=== PATIENT | male | born 1955 | race Caucasian/White ===

== ENCOUNTER 2016-06-28 15:52 | Inpatient (IN) | payer OTHER ==
[2016-06-28] MEDS ORDERED: MENTHOL/PHENOL 1 EACH UD MM PRN (16:23)
[2016-06-28] MEDS ORDERED: guaiFENesin/D-METHORPHAN HB 10 ML UNIT-DOSE CUPS PO PRN (16:23)
[2016-06-28] MEDS ORDERED: METHADONE HCL 10 MG TABLET (FOR DETOX USE ONLY) PO ONE ×2 (16:23→23:00)
[2016-06-28] MEDS ORDERED: MAGNESIUM CITRATE 300 ML BOTTLE PO PRN (16:23)
[2016-06-28] MEDS ORDERED: MAG HYDROX/AL HYDROX/SIMETH 30 ML UNIT-DOSE CUP PO PRN (16:23)
[2016-06-28] MEDS ORDERED: LOPERAMIDE HCL 2 MG CAPSULE PO PRN (16:23)
[2016-06-28] MEDS ORDERED: P-EPHED 60MG/TRIPROLIDI 2.5MG TABLET PO PRN (16:23)
[2016-06-28] MEDS ORDERED: MAGNESIUM HYDROX 2400MG/30ML ORAL SUSPENSION 30 ML CUP PO PRN (16:23)
[2016-06-28 16:24] VITALS: BMI 21.1
--- NOTE | 2016-06-28 16:32 | HP ---
COWS - Scale Resting Pulse: 0= [place] 80 or Below Sweatin=Flushed/Facial Moisture Restless Observation: 1= Difficult to Sit Still Pupil Size: 2= Moderately Dilated Bone or Joint Aches: 2= Severe Diffuse Aches Runny Nose/ Eye Tearin= Runny Nose/Eyes GI Upset > 30mins: 2= Nausea/Diarrhea Tremor Observation: 2= Slight Tremor Visible Yawning Observation: 1= 1-2x During Session Anxiety or Irritability: 2=Irritable/Anxious Goose Flesh Skin: 0=Smooth Skin COWS Score: 16 Admission ROS S - [facility] Chief Complaint: WITHDRAWAL SX. Allergies/Adverse Reactions: Allergies Allergy/AdvReac Type Severity Reaction Status Date / Time No Known Allergies Allergy Verified 06/28/16 16:22 History of Present Illness: 61 Y/O MAN WITH A LONG HX. OF HEROIN DEPENDENCE IS ADMITTED FOR DETOX.PT. HAS BEEN IN PREVIOUS REPORT SIGNIFICANT PERIOD DRUG FREE,ABOUT 5YRS. Exam Limitations: No Limitations - Ebola screening Have you traveled outside of the country in the last 21 days: No Have you had contact with anyone from an Ebola affected area: No Have you been sick,other than usual withdrawal symptoms: No Do you have a fever: No - Review of Systems Constitutional: Diaphoresis EENT: reports: Nose Congestion Respiratory: reports: No Symptoms reported Cardiac: reports: No Symptoms Reported GI: reports: Abdominal cramping : reports: No Symptoms Reported Musculoskeletal: reports: Back Pain (OFF & ON) Integumentary: reports: Sweating Neuro: reports: Headache, Tremors Endocrine: reports: No Symptoms Reported Hematology: reports: No Symptoms Reported Psychiatric: reports: No Sypmtoms Reported Other Systems: Reviewed and Negative Patient History - Patient Medical History Hx Anemia: No Hx Asthma: No Hx Chronic Obstructive Pulmonary Disease (COPD): No Hx Cancer: No Hx Cardiac Disorders: Yes (MILD IA IN CAUSED BY DRUG OD IN 2006) Hx Congestive Heart Failure: No Hx Hypertension: No Hx Hypercholesterolemia: No Hx Pacemaker: No HX Cerebrovascular Accident: No Hx Seizures: No Hx Dementia: No Hx Diabetes: No Hx Gastrointestinal Disorders: No Hx Liver Disease: Yes Hx Genitourinary Disorders: No Hx Sexually Transmitted Disorders: No Hx Renal Disease (ESRD): No Hx Thyroid Disease: No Hx Human Immunodeficiency Virus (HIV): No Hx Hepatitis C: Yes (TREATED IN 2011) Hx Depression: Yes (NO MED NOW) Hx Suicide Attempt: Yes (DRUG OD IN 2006) Hx Bipolar Disorder: No Hx Schizophrenia: No - Patient Surgical History Past Surgical History: Yes Hx Cholecystectomy: Yes - PPD History Previous Implant?: Yes Documented Results: Negative w/o proof PPD to be Administered?: Yes - Smoking Cessation Smoking history: Never smoked - Substance & Tx. History Hx Alcohol Use: No Hx Substance Use: Yes Substance Use Type: Heroin Hx Substance Use Treatment: Yes (DETOX) - Substances Abused Heroin Route: Inhalation Frequency: Daily Amount used: 18-20 BAGS Age of first use: 12 Date of Last Use: 06/27/16 Family Disease History - Family Disease History Family Disease History: Heart Disease: Mother (HTN,COPD), Respiratory: Mother, Other: Father (CVA) Admission Physical Exam [facility] - Vital Signs Vital Signs: Vital Signs - 24 hr 06/28/16 16:22 Temperature 97.4 F L Pulse Rate 72 Respiratory 18 Rate Blood Pressure 152/107 - Physical General Appearance: Yes: Tremorous, Sweating, Anxious HEENTM: Yes: Nasal Congestion, Rhinorrhea Respiratory: Yes: Chest Non-Tender, Lungs Clear, Normal Breath Sounds Neck: Yes: Supple Breast: Yes: Breast Exam Deferred Cardiology: Yes: Regular Rhythm, Regular Rate, S1, S2 Abdominal: Yes: Normal Bowel Sounds, Non Tender, Soft Genitourinary: Yes: Within Normal Limits Back: Yes: Within Normal Limits Musculoskeletal: Yes: Within Normal Limits Extremities: Yes: Within Normal Limits Neurological: Yes: Fully Oriented, Alert Integumentary: Yes: Diaphoresis Lymphatic: Yes: Within Normal Limits - Diagnostic (1) Opioid dependence with withdrawal Current Visit: Yes Status: Acute Cleared for Admission [facility] - Detox or Rehab [facility] Level of Care: Medically Managed Detox Regimen/Protocol: Methadone [facility] Breath Alcohol Content Breath Alcohol Content: 0 Urine Drug Screen - Results Drug Screen Negative: No Urine Drug Screen Results: OPI-Opiates, MTD-Methadone, TCA-Tricyclic Antidepress
[2016-06-28] MEDS: diazePAM 5 MG TABLET PO PRN (17:07)
[2016-06-28] MEDS: THIAMINE HCL 100 MG TABLET (FP) PO SCH (22:11)
[2016-06-28] MEDS: diphenhydrAMINE HCL 50 MG CAPSULE PO PRN (22:11)
[2016-06-29] MEDS: diazePAM 5 MG TABLET PO PRN ×3 (05:35→22:25)
[2016-06-29 09:47] LABS: MCH 29.1 pg (25.7-33.7); MCHC 33.5 g/dl (32.0-35.9); MEAN CELL VOLUME 87.1 fl (80-96); MEAN PLT VOLUME 7.9 fl (7.5-11.1); PLATELET COUNT 213 K/MM3 (134-434); RDW 15.2 % (11.9-15.9); WHITE BLOOD COUNT 6.8 K/mm3 (4.0-10.0)
[2016-06-29] MEDS ORDERED: METHADONE HCL 10 MG TABLET (FOR DETOX USE ONLY) PO ONE (10:00)
[2016-06-29 10:11] LABS: ALBUMIN 3.4 g/dl (3.4-5.0); ALK PHOS 113 U/L (45-117); ANION GAP 9 (8-16); BILIRUBIN,TOTAL 0.1 mg/dL (0.2-1.0); CALCIUM 8.5 mg/dL (8.5-10.1); CO2 26 mmol/L (21-32); CREATININE 0.7 mg/dL (0.7-1.3); GLUCOSE,RANDOM 96 mg/dL (74-106); SGOT/AST 20 U/L (15-37); SGPT/ALT 18 U/L (12-78); TOT PROT 7.5 g/dl (6.4-8.2)
--- NOTE | 2016-06-29 10:28 | EKG ---
Test Reason : Blood Pressure : / mmHG Vent. Rate : 072 BPM Atrial Rate : 072 BPM P-R Int : 138 ms QRS Dur : 072 ms QT Int : 398 ms P-R-T Axes : 067 058 033 degrees QTc Int : 435 ms NORMAL SINUS RHYTHM MINIMAL VOLTAGE CRITERIA FOR LVH, MAY BE NORMAL VARIANT BORDERLINE ECG NO PREVIOUS ECGS AVAILABLE Confirmed by MARIA LUISA ZHONG MD ([id number]) on 06/29/2016 10:27:37 AM Referred By: Confirmed By:MARIA LUISA ZHONG MD
[2016-06-29] MEDS: PRENATAL VITAMINS W/ FOLIC ACID TABLET (FP) PO SCH (10:45)
--- NOTE | 2016-06-29 11:45 | PN ---
[facility] COWS - Scale Resting Pulse: 0= [place] 80 or Below Sweatin=Flushed/Facial Moisture Restless Observation: 1= Difficult to Sit Still Pupil Size: 0= Normal to Room Light Bone or Joint Aches: 2= Severe Diffuse Aches Runny Nose/ Eye Tearin= Runny Nose/Eyes GI Upset > 30mins: 2= Nausea/Diarrhea Tremor Observation of Outstretched Hands: 2= Slight Tremor Visible Yawning Observation: 1= 1-2x During Session Anxiety or Irritability: 2=Irritable/Anxious Goose Flesh Skin: 0=Smooth Skin COWS Score: 14 BHS Progress Note (SOAP) Subjective: SWEATING,ANXIETY,INTERRUPTED SLEEP,RESTLESS,MUSCLE ACHES/SPASM Objective: 06/29/16 11:43 Vital Signs - 8 hr 06/29/16 06/29/16 06:13 09:42 Temperature 96.1 F L 97.3 F L Pulse Rate 62 74 Respiratory 18 18 Rate Blood Pressure 152/79 106/65 Laboratory Tests 06/29/16 06/29/16 06:30 06:30 WBC 6.8 RBC 4.01 Hgb 11.7 Hct 34.9 L MCV 87.1 MCHC 33.5 RDW 15.2 Plt Count 213 MPV 7.9 Sodium 139 Potassium 4.0 Chloride 104 Carbon Dioxide 26 Anion Gap 9 BUN 16 Creatinine 0.7 Creat Clearance w eGFR > 60 Random Glucose 96 Calcium 8.5 Total Bilirubin 0.1 L AST 20 ALT 18 Alkaline Phosphatase 113 Total Protein 7.5 Albumin 3.4 LABS NOTED Assessment: 06/29/16 11:44 WITHDRAWAL SX. Plan: CONTINUE DETOX
[2016-06-29] MEDS ORDERED: INFLUENZA VACCINE 45 MCG/0.5 ML (MDV 16-17) IM ONE (12:00)
[2016-06-29 12:14] LABS: HIV 1 & 2 AB NEGATIVE; HIV 1 AGp24 NEGATIVE
[2016-06-29 13:21] LABS: SICKLE CELL SCREEN NEGATIVE (NEGATIVE)
--- NOTE | 2016-06-29 13:51 | CONSULT ---
[facility] Psychiatric Consult - Data Date of interview: 06/29/16 Admission source: [facility] Identifying data: Readmission to [facility] for this 61 y/o male seeking detox treatment on for heroin dependence.Patient is , domiciled,unemployed and supported on Social Security benefits. Substance Abuse History: - Smoking Cessation. Smoking history: Never smoked. - Substance & Tx. History. Hx Alcohol Use: No. Hx Substance Use: Yes. Substance Use Type: Heroin. Hx Substance Use Treatment: Yes (DETOX). - Substances Abused. Heroin. Route: Inhalation. Frequency: Daily. Amount used: 18-20 BAGS. Age of first use: 12. Date of Last Use: 06/27/16. Discussed with patient in this interview.He confirmed this pattern of substance use. Medical History: Remarkable for a history of liver disease,hepatitis C and myocardial infarction in 2006 (deliberate drug overdose). Psychiatric History: No reported history of psychiatric hospitalizations.Patient states that he used to be prescribed ambien and zyprexa (last taken in 2006).Mr Payan mentions MDD and Anxiety Disorder.No OPD care for years.Chronic insomnia is reported and the patient requests zolpidem at bedtime.Mr Payan has also expressed the wish to restart olanzapine (he reports past history of beneficial response to that drug in terms of mood stabilization). Physical/Sexual Abuse/Trauma History: Patient denies history of sexual abuse.Mr Payan reports the loss of two wives (2006 + 2009).Traumatized by these tragic events. Additional Comment: Urine Drug Screen Results: OPI-Opiates, MTD-Methadone, TCA- Tricyclic Antidepressant.Noted. Mental Status Exam - Mental Status Exam Alert and Oriented to: Time, Place, Person Cognitive Function: Good Patient Appearance: Disheveled Mood: Nervous, Withdrawn Affect: Mood Congruent Patient Behavior: Fatigued, Appropriate, Cooperative Speech Pattern: Clear, Appropriate Voice Loudness: Normal (bilingual) Thought Process: Intact, Goal Oriented Thought Disorder: Not Present Hallucinations: Denies Suicidal Ideation: Denies Homicidal Ideation: Denies Insight/Judgement: Poor Sleep: Poorly, Difficulty falling asleep Appetite: Good Muscle strength/Tone: Normal Gait/Station: Normal Psychiatric Findings - Problem List ([place] 1, 2,3) (1) Opioid dependence with withdrawal Current Visit: Yes Status: Acute (2) Insomnia Current Visit: Yes Status: Acute - Initial Treatment Plan Initial Treatment Plan: Psychoeducation.Detoxification in progress.Zyprexa 2.5 mg po hs + zolpidem 5 mg po hs prn.Patient made aware of risk of metbolic syndrome (olanzapine) and parasomnias (ambien).He agrees with this plan.Observation.
[2016-06-29] MEDS: IBUPROFEN 400 MG TABLET (FP) PO PRN (19:21)
[2016-06-29] MEDS: ZOLPIDEM TARTRATE 5 MG TABLET PO PRN (22:25)
[2016-06-29] MEDS: THIAMINE HCL 100 MG TABLET (FP) PO SCH (22:26)
[2016-06-29] MEDS: BENZOCAINE 20 % GEL 9 GM TUBE MM PRN (22:58)
[2016-06-30] MEDS: diazePAM 5 MG TABLET PO PRN ×2 (02:35→22:29)
[2016-06-30] MEDS: IBUPROFEN 400 MG TABLET (FP) PO PRN ×3 (02:36→20:52)
[2016-06-30] MEDS: BENZOCAINE 20 % GEL 9 GM TUBE MM PRN ×4 (02:37→22:28)
[2016-06-30] MEDS: ACETAMINOPHEN 325 MG TABLET (FP) PO PRN ×2 (05:33→22:28)
[2016-06-30] MEDS ORDERED: METHADONE HCL 5 MG TABLET (FOR DETOX USE ONLY) PO ONE (10:00)
[2016-06-30] MEDS: PRENATAL VITAMINS W/ FOLIC ACID TABLET (FP) PO SCH (10:24)
--- NOTE | 2016-06-30 11:42 | PN ---
[facility] CIWA - CIWA Score Nausea/Vomitin-No Nausea/No Vomiting Muscle Tremors: 4-Moderate,w/Arms Extend Anxiety: 4-Mod. Anxious/Guarded Agitation: 4-Moderately Restless Paroxysmal Sweats: 1-Minimal Palms Moist Orientation: 0-Oriented Tacttile Disturbances: 3-Moderate Itch/Numb/Burn Auditory Disturbances: 0-None Visual Disturbances: 0-None Headache: 0-None Present CIWA-Ar Total Score: 16 BHS Progress Note (SOAP) Subjective: ANXIETY,SLIGHT TREMORS, SWEATS. C/O TOOTHACHE LEFT UPPER/LOWER JAW. Objective: 06/30/16 11:41 Vital Signs Temperature 96.4 F L 06/30/16 06:24 Pulse Rate 66 06/30/16 06:24 Respiratory Rate 18 06/30/16 06:24 Blood Pressure 134/80 06/30/16 06:24 O2 Sat by Pulse Oximetry (%) Laboratory Last Values WBC 6.8 K/mm3 (4.0-10.0) 06/29/16 06:30 RBC 4.01 M/mm3 (4.00-5.60) 06/29/16 06:30 Hgb 11.7 GM/dL (11.7-16.9) 06/29/16 06:30 Hct 34.9 % (35.4-49) L 06/29/16 06:30 MCV 87.1 fl (80-96) 06/29/16 06:30 MCHC 33.5 g/dl (32.0-35.9) 06/29/16 06:30 RDW 15.2 % (11.9-15.9) 06/29/16 06:30 Plt Count 213 K/MM3 (134-434) 06/29/16 06:30 MPV 7.9 fl (7.5-11.1) 06/29/16 06:30 Sickle Cell Screen Negative (NEGATIVE) 06/29/16 06:30 Sodium 139 mmol/L (136-145) 06/29/16 06:30 Potassium 4.0 mmol/L (3.5-5.1) 06/29/16 06:30 Chloride 104 mmol/L (98-107) 06/29/16 06:30 Carbon Dioxide 26 mmol/L (21-32) 06/29/16 06:30 Anion Gap 9 (8-16) 06/29/16 06:30 BUN 16 mg/dL (7-18) 06/29/16 06:30 Creatinine 0.7 mg/dL (0.7-1.3) 06/29/16 06:30 Creat Clearance w eGFR > 60 (>60) 06/29/16 06:30 Random Glucose 96 mg/dL (74-106) 06/29/16 06:30 Calcium 8.5 mg/dL (8.5-10.1) 06/29/16 06:30 Total Bilirubin 0.1 mg/dL (0.2-1.0) L 06/29/16 06:30 AST 20 U/L (15-37) 06/29/16 06:30 ALT 18 U/L (12-78) 06/29/16 06:30 Alkaline Phosphatase 113 U/L (45-117) 06/29/16 06:30 Total Protein 7.5 g/dl (6.4-8.2) 06/29/16 06:30 Albumin 3.4 g/dl (3.4-5.0) 06/29/16 06:30 RPR Titer Nonreactive (NONREACTIVE) 06/29/16 06:30 HIV 1&2 Antibody Screen Negative 06/29/16 06:30 HIV P24 Antigen Negative 06/29/16 06:30 Assessment: 06/30/16 11:41 WITHDRAWAL SX Plan: CONTINUE DETOX
[2016-06-30] MEDS: LIDOCAINE VISCOUS 2% ORAL/TOP 20 ML UNIT-DOSE CUP MM PRN (12:53)
[2016-06-30 17:29] LABS: URINE APPEARANCE CLEAR; URINE BILIRUBIN NEGATIVE (NEGATIVE); URINE BLOOD NEGATIVE (NEGATIVE); URINE COLOR LTYELLOW; URINE GLUCOSE (UA) NEGATIVE (NEGATIVE); URINE KETONE NEGATIVE (NEGATIVE); URINE LEUK ESTERASE NEGATIVE (NEGATIVE); URINE NITRITE NEGATIVE (NEGATIVE); URINE PROTEIN NEGATIVE (NEGATIVE); URINE UROBILINOGEN NEGATIVE E.U./dl (0.2-1.0)
[2016-06-30] MEDS: ZOLPIDEM TARTRATE 5 MG TABLET PO PRN (22:29)
[2016-06-30] MEDS: THIAMINE HCL 100 MG TABLET (FP) PO SCH (22:29)
[2016-07-01] MEDS: diazePAM 5 MG TABLET PO PRN ×2 (05:37→10:05)
[2016-07-01] MEDS: IBUPROFEN 400 MG TABLET (FP) PO PRN (05:38)
[2016-07-01] MEDS: LIDOCAINE VISCOUS 2% ORAL/TOP 20 ML UNIT-DOSE CUP MM PRN (05:39)
[2016-07-01] MEDS ORDERED: AMOX TR/POT CLAV 875MG/125MG TABLETS (FP) PO ONE (08:45)
[2016-07-01] MEDS ORDERED: METHADONE HCL 5 MG TABLET (FOR DETOX USE ONLY) PO ONE (10:00)
[2016-07-01] MEDS: PRENATAL VITAMINS W/ FOLIC ACID TABLET (FP) PO SCH (10:04)
--- NOTE | 2016-07-01 10:07 | PN ---
S Progress Note (SOAP) Subjective: ANXIETY,IRRITABILITY,EXCRUCIATING TOOTHACHE,INTERMITTENT SLEEP Objective: 07/01/16 10:03 Vital Signs Temperature 96.9 F L 07/01/16 09:33 Pulse Rate 71 07/01/16 09:33 Respiratory Rate 18 07/01/16 09:33 Blood Pressure 108/82 07/01/16 09:33 O2 Sat by Pulse Oximetry (%) LEFT UPPER/LOWER MOLARS AND LOWER INCISSORS WITH TOOTH DECAY/ABCESS AND REDNESS. Assessment: 07/01/16 10:04 WITHDRAWAL SX TOOTH DECAY TOOTH ABCESS GINGIVITIS Plan: CONTINUE DETOX [facility] DIRECTED FOLLOW UP WITH DENTAL APPOINTMENT AFTER DETOX DISCHARGE.
[2016-07-01] MEDS: BENZOCAINE 20 % GEL 9 GM TUBE MM PRN ×4 (12:57→23:22)
[2016-07-01] MEDS: AMOX TR/POT CLAV 875MG/125MG TABLETS (FP) PO SCH (16:48)
[2016-07-01] MEDS: hydrOXYzine PAMOATE 50 MG CAPSULE (FP) PO PRN (17:04)
[2016-07-01] MEDS: THIAMINE HCL 100 MG TABLET (FP) PO SCH (22:18)
[2016-07-01] MEDS: OLANZapine 2.5 MG TABLET PO SCH (22:18)
[2016-07-01] MEDS: ZOLPIDEM TARTRATE 5 MG TABLET PO PRN (22:18)
[2016-07-02] MEDS: hydrOXYzine PAMOATE 50 MG CAPSULE (FP) PO PRN (05:42)
[2016-07-02] MEDS: ACETAMINOPHEN 325 MG TABLET (FP) PO PRN (05:43)
[2016-07-02] MEDS: AMOX TR/POT CLAV 875MG/125MG TABLETS (FP) PO SCH ×2 (07:20→17:39)
[2016-07-02] MEDS ORDERED: ONDANSETRON *ODT* 4 MG TABLET SL PRN (09:27)
--- NOTE | 2016-07-02 09:50 | PN ---
BHS Progress Note (SOAP) Subjective: ANXIETY,SWEATS,CHILLS,NAUSEA. Objective: 07/02/16 09:49 Vital Signs Temperature 97.0 F L 07/02/16 09:22 Pulse Rate 76 07/02/16 09:22 Respiratory Rate 18 07/02/16 09:22 Blood Pressure 133/76 07/02/16 09:22 O2 Sat by Pulse Oximetry (%) Assessment: 07/02/16 09:50 WITHDRAWAL SX Plan: CONTINUE DETOX ZOFRAN PRN
[2016-07-02] MEDS ORDERED: METHADONE HCL 10 MG TABLET (FOR DETOX USE ONLY) PO ONE (10:00)
[2016-07-02] MEDS: PRENATAL VITAMINS W/ FOLIC ACID TABLET (FP) PO SCH (10:05)
[2016-07-02] MEDS: IBUPROFEN 400 MG TABLET (FP) PO PRN ×2 (10:05→22:17)
[2016-07-02] MEDS: BENZOCAINE 20 % GEL 9 GM TUBE MM PRN (20:30)
[2016-07-02] MEDS: LIDOCAINE VISCOUS 2% ORAL/TOP 20 ML UNIT-DOSE CUP MM PRN (20:32)
[2016-07-02] MEDS: OLANZapine 2.5 MG TABLET PO SCH (22:16)
[2016-07-02] MEDS: diphenhydrAMINE HCL 50 MG CAPSULE PO PRN (22:16)
[2016-07-02] MEDS: THIAMINE HCL 100 MG TABLET (FP) PO SCH (22:16)
[2016-07-03] MEDS: diphenhydrAMINE HCL 50 MG CAPSULE PO PRN (01:18)
[2016-07-03] MEDS ORDERED: METHADONE HCL 5 MG TABLET (FOR DETOX USE ONLY) PO ONE (06:00)
[2016-07-03 06:22] VITALS: BP 145/76; PULSE 68; TEMP 96.6
[2016-07-03] MEDS: AMOX TR/POT CLAV 875MG/125MG TABLETS (FP) PO SCH (07:18)
--- NOTE | 2016-07-25 11:10 | DS ---
[facility] Detox Discharge Summary Admission Date: 06/28/16 Discharge Date: 07/03/16 - History Present History: Opioid Dependence Pertinent Past History: Hep C - Physical Exam Results Vital Signs: Vital Signs Temperature 96.6 F L 07/03/16 06:21 Pulse Rate 68 07/03/16 06:21 Respiratory Rate 18 07/03/16 06:21 Blood Pressure 145/76 07/03/16 06:21 O2 Sat by Pulse Oximetry (%) Pertinent Admission Physical Exam Findings: withdrawal sx. Laboratory Last Values WBC 6.8 K/mm3 (4.0-10.0) 06/29/16 06:30 RBC 4.01 M/mm3 (4.00-5.60) 06/29/16 06:30 Hgb 11.7 GM/dL (11.7-16.9) 06/29/16 06:30 Hct 34.9 % (35.4-49) L 06/29/16 06:30 MCV 87.1 fl (80-96) 06/29/16 06:30 MCHC 33.5 g/dl (32.0-35.9) 06/29/16 06:30 RDW 15.2 % (11.9-15.9) 06/29/16 06:30 Plt Count 213 K/MM3 (134-434) 06/29/16 06:30 MPV 7.9 fl (7.5-11.1) 06/29/16 06:30 Sickle Cell Screen Negative (NEGATIVE) 06/29/16 06:30 Sodium 139 mmol/L (136-145) 06/29/16 06:30 Potassium 4.0 mmol/L (3.5-5.1) 06/29/16 06:30 Chloride 104 mmol/L (98-107) 06/29/16 06:30 Carbon Dioxide 26 mmol/L (21-32) 06/29/16 06:30 Anion Gap 9 (8-16) 06/29/16 06:30 BUN 16 mg/dL (7-18) 06/29/16 06:30 Creatinine 0.7 mg/dL (0.7-1.3) 06/29/16 06:30 Creat Clearance w eGFR > 60 (>60) 06/29/16 06:30 Random Glucose 96 mg/dL (74-106) 06/29/16 06:30 Calcium 8.5 mg/dL (8.5-10.1) 06/29/16 06:30 Total Bilirubin 0.1 mg/dL (0.2-1.0) L 06/29/16 06:30 AST 20 U/L (15-37) 06/29/16 06:30 ALT 18 U/L (12-78) 06/29/16 06:30 Alkaline Phosphatase 113 U/L (45-117) 06/29/16 06:30 Total Protein 7.5 g/dl (6.4-8.2) 06/29/16 06:30 Albumin 3.4 g/dl (3.4-5.0) 06/29/16 06:30 Urine Color Ltyellow 06/30/16 10:45 Urine Appearance Clear 06/30/16 10:45 Urine pH 5.0 (5.0-8.0) 06/30/16 10:45 Ur Specific [place] 1.018 (1.001-1.035) 06/30/16 10:45 Urine Protein Negative (NEGATIVE) 06/30/16 10:45 Urine Glucose (UA) Negative (NEGATIVE) 06/30/16 10:45 Urine Ketones Negative (NEGATIVE) 06/30/16 10:45 Urine Blood Negative (NEGATIVE) 06/30/16 10:45 Urine Nitrite Negative (NEGATIVE) 06/30/16 10:45 Urine Bilirubin Negative (NEGATIVE) 06/30/16 10:45 Urine Urobilinogen Negative E.U./dl (0.2-1.0) 06/30/16 10:45 Ur Leukocyte Esterase Negative (NEGATIVE) 06/30/16 10:45 RPR Titer Nonreactive (NONREACTIVE) 06/29/16 06:30 HIV 1&2 Antibody Screen Negative 06/29/16 06:30 HIV P24 Antigen Negative 06/29/16 06:30 labs noted - Treatment Hospital Course: Detox Protocol Followed, Detoxed Safely, Responded well, Discharged Condition Good, Rehab Referral Accepted - Medication Discharge Medications: Ambulatory Orders Amox-Tr/K Cl [Augmentin 875-125mg Tablet -] 1 tab PO BID@0800,1730 #14 tablet - Diagnosis (1) Opioid dependence with withdrawal Status: Acute (2) Insomnia Status: Acute (3) Hep C w/o coma, chronic Status: Acute - AMA Did Patient Leave Against Medical Advice: No
== END 2016-07-03 07:00 | disposition home or self-care (01) | DRG 773 ==
LOC: YASAS 15:52 → Y3N 16:41
PROVIDERS: ADMIT Internal Medicine; ATTEND Internal Medicine
PROC: HZ2ZZZZ Detoxification Services for Substance Abuse Treatment (ICD-10-PCS; principal; 2016-07-03)
DX: F11.23 Opioid dependence with withdrawal (principal); G47.00 Insomnia, unspecified
CPT/HCPCS: 36415; 80053; 81003; 85027; 85660; 86593; 87389; 93005; 93010

== ENCOUNTER 2016-10-29 11:47 | Inpatient (IN) | payer OTHER ==
[2016-10-29 14:56] VITALS: BMI 20.4
--- NOTE | 2016-10-29 16:39 | HP ---
COWS - Scale Resting Pulse: 0= [place] 80 or Below Sweatin= Chills/Flushing Restless Observation: 3= Extraneous Movement Pupil Size: 0= Normal to Room Light Bone or Joint Aches: 2= Severe Diffuse Aches Runny Nose/ Eye Tearin= Runny Nose/Eyes GI Upset > 30mins: 1= Stomach Cramp Tremor Observation: 2= Slight Tremor Visible Yawning Observation: 1= 1-2x During Session Anxiety or Irritability: 2=Irritable/Anxious Goose Flesh Skin: 0=Smooth Skin COWS Score: 14 Admission ROS S - [facility] Chief Complaint: withdrawal sx Allergies/Adverse Reactions: Allergies Allergy/AdvReac Type Severity Reaction Status Date / Time No Known Allergies Allergy Verified 10/29/16 15:25 History of Present Illness: 61 years old male with long history of opioid dependence has depression denies medical issue is admitted to detox Exam Limitations: No Limitations - Ebola screening Have you traveled outside of the country in the last 21 days: No Have you had contact with anyone from an Ebola affected area: No Have you been sick,other than usual withdrawal symptoms: No Do you have a fever: No - Review of Systems Constitutional: Chills, Changes in sleep, Weight Stable EENT: reports: Dental Problems (chronic gum infection), Other (eye glasses) Respiratory: reports: No Symptoms reported Cardiac: reports: No Symptoms Reported GI: reports: Constipated, Nausea, Poor Fluid Intake, Abdominal cramping : reports: No Symptoms Reported Musculoskeletal: reports: Back Pain, Joint Pain, Muscle Pain, Neck Pain Integumentary: reports: No Symptoms Reported Neuro: reports: Tremors Endocrine: reports: No Symptoms Reported Hematology: reports: No Symptoms Reported Psychiatric: reports: Judgement Intact, Orientated x3, Anxious, Depressed Other Systems: Reviewed and Negative Patient History - Patient Medical History Hx Anemia: No Hx Asthma: No Hx Chronic Obstructive Pulmonary Disease (COPD): No Hx Cancer: No Hx Cardiac Disorders: No Hx Congestive Heart Failure: No Hx Hypertension: No Hx Hypercholesterolemia: No Hx Pacemaker: No HX Cerebrovascular Accident: No Hx Seizures: No Hx Dementia: No Hx Diabetes: No Hx Gastrointestinal Disorders: Yes (acid reflux) Hx Liver Disease: Yes Hx Genitourinary Disorders: No Hx Sexually Transmitted Disorders: No Hx Renal Disease (ESRD): No Hx Thyroid Disease: No Hx Human Immunodeficiency Virus (HIV): No Hx Hepatitis C: Yes (TREATED IN 2011) Hx Depression: Yes Hx Suicide Attempt: Yes (pill overdose in 1996) Hx Bipolar Disorder: No Hx Schizophrenia: No - Patient Surgical History Past Surgical History: Yes Hx Neurologic Surgery: No Hx Cataract Extraction: No Hx Cardiac Surgery: No Hx Lung Surgery: No Hx Breast Surgery: No Hx Breast Biopsy: No Hx Abdominal Surgery: No Hx Appendectomy: No Hx Cholecystectomy: Yes (in 2013) Hx Genitourinary Surgery: No Hx Orthopedic Surgery: No Anesthesia Reaction: No - PPD History Previous Implant?: Yes Documented Results: Negative w/proof Implanted On Prior R Admission?: Yes Date: 06/30/16 Results: 0 mm PPD to be Administered?: No - Smoking Cessation Smoking history: Never smoked Have you smoked in the past 12 months: No Hx Chewing Tobacco Use: No Initiated information on smoking cessation: No - Substance & Tx. History Hx Alcohol Use: No Hx Substance Use: Yes Substance Use Type: Opiates Hx Substance Use Treatment: Yes - Substances Abused Heroin Route: Inhalation Frequency: Daily Amount used: 22 bags Age of first use: 12 Date of Last Use: 10/28/16 Street methadone Route: Oral Frequency: 1-3 times last 30 days Amount used: 60 mg. Age of first use: 33 Date of Last Use: 10/28/16 Family Disease History - Family Disease History Family Disease History: Heart Disease: Mother (HTN,COPD ), Respiratory: Mother, Other: Father (CVA ) Admission Physical Exam [facility] - Vital Signs Vital Signs: Vital Signs - 24 hr 10/29/16 14:52 Temperature 96 F L Pulse Rate 73 Respiratory 20 Rate Blood Pressure 104/67 - Physical General Appearance: Yes: Appropriately Dressed, Mild Distress, Thin, Tremorous, Irritable, Sweating, Anxious HEENTM: Yes: Hearing grossly Normal, Normal ENT Inspection, Normocephalic, Normal Voice Respiratory: Yes: Chest Non-Tender, Lungs Clear, Normal Breath Sounds, No Respiratory Distress, No Accessory Muscle Use Neck: Yes: Supple, Trachea in good position Breast: Yes: Breasts Symetrical Cardiology: Yes: Regular Rhythm, Regular Rate, S1, S2 Abdominal: Yes: Non Tender, Soft, Decreased BS Genitourinary: Yes: Within Normal Limits Back: Yes: Normal Inspection Musculoskeletal: Yes: full range of Motion, Gait Steady, Back pain, Muscle Pain Extremities: Yes: Normal Range of Motion, Non-Tender, Tremors Neurological: Yes: Fully Oriented, Alert, Motor Strength 5/5, Normal Response, Depressed Affect Integumentary: Yes: Warm Lymphatic: Yes: Within Normal Limits - Diagnostic (1) Opioid dependence with withdrawal Current Visit: Yes Status: Acute (2) GERD (gastroesophageal reflux disease) Current Visit: Yes Status: Chronic Qualifiers: Esophagitis presence: without esophagitis Qualified Code(s): K21.9 - Gastro-esophageal reflux disease without esophagitis (3) Hepatitis C antibody test positive Current Visit: Yes Status: Resolved (4) Depression (emotion) Current Visit: Yes Status: Suspected Qualifiers: Depression Type: dysthymia Qualified Code(s): F34.1 - Dysthymic disorder Cleared for Admission [facility] - Detox or Rehab [facility] Level of Care: Medically Managed Detox Regimen/Protocol: Methadone [facility] Breath Alcohol Content Breath Alcohol Content: 0 Urine Drug Screen - Results Drug Screen Negative: No Urine Drug Screen Results: OPI-Opiates, MTD-Methadone, TCA-Tricyclic Antidepress
[2016-10-29] MEDS ORDERED: MAGNESIUM CITRATE 300 ML BOTTLE PO PRN (16:43)
[2016-10-29] MEDS ORDERED: LOPERAMIDE HCL 2 MG CAPSULE PO PRN (16:43)
[2016-10-29] MEDS ORDERED: P-EPHED 60MG/TRIPROLIDI 2.5MG TABLET PO PRN (16:43)
[2016-10-29] MEDS ORDERED: diphenhydrAMINE HCL 50 MG CAPSULE PO PRN (16:43)
[2016-10-29] MEDS ORDERED: MENTHOL/PHENOL 1 EACH UD MM PRN (16:43)
[2016-10-29] MEDS ORDERED: guaiFENesin/D-METHORPHAN HB 10 ML UNIT-DOSE CUPS PO PRN (16:43)
[2016-10-29] MEDS ORDERED: MAGNESIUM HYDROX 2400MG/30ML ORAL SUSPENSION 30 ML CUP PO PRN (16:43)
[2016-10-29] MEDS ORDERED: MAG HYDROX/AL HYDROX/SIMETH 30 ML UNIT-DOSE CUP PO PRN (16:43)
[2016-10-29] MEDS ORDERED: ACETAMINOPHEN 325 MG TABLET (FP) PO PRN (16:43)
[2016-10-29] MEDS ORDERED: METHADONE HCL 10 MG TABLET (FOR DETOX USE ONLY) PO ONE ×2 (18:00→23:00)
[2016-10-29] MEDS: diazePAM 5 MG TABLET PO PRN (18:38)
[2016-10-29] MEDS: RANITIDINE HCL 150 MG TABLET (FP) PO SCH (22:10)
[2016-10-29] MEDS: THIAMINE HCL 100 MG TABLET (FP) PO SCH (22:10)
[2016-10-30] MEDS: diazePAM 5 MG TABLET PO PRN ×2 (05:18→10:17)
--- NOTE | 2016-10-30 09:54 | EKG ---
Test Reason : Blood Pressure : / mmHG Vent. Rate : 081 BPM Atrial Rate : 081 BPM P-R Int : 132 ms QRS Dur : 084 ms QT Int : 374 ms P-R-T Axes : 060 061 031 degrees QTc Int : 434 ms NORMAL SINUS RHYTHM MINIMAL VOLTAGE CRITERIA FOR LVH, MAY BE NORMAL VARIANT WHEN COMPARED WITH ECG OF 28-JUN-2016 17:12, NO SIGNIFICANT CHANGE WAS FOUND Confirmed by JOEY CLAROS MD ([id number]) on 10/30/2016 9:54:10 AM Referred By: Confirmed By:JOEY CLAROS MD
[2016-10-30] MEDS ORDERED: METHADONE HCL 10 MG TABLET (FOR DETOX USE ONLY) PO ONE (10:00)
[2016-10-30] MEDS: RANITIDINE HCL 150 MG TABLET (FP) PO SCH ×2 (10:17→23:10)
[2016-10-30] MEDS: PRENATAL VITAMINS W/ FOLIC ACID TABLET (FP) PO SCH (10:17)
[2016-10-30 10:24] LABS: MCH 28.8 pg (25.7-33.7); MCHC 33.5 g/dl (32.0-35.9); MEAN CELL VOLUME 86.2 fl (80-96); MEAN PLT VOLUME 8.7 fl (7.5-11.1); PLATELET COUNT 228 K/MM3 (134-434); RDW 14.2 % (11.9-15.9)
[2016-10-30] MEDS ORDERED: ONDANSETRON *ODT* 4 MG TABLET SL PRN (10:25)
[2016-10-30 10:57] LABS: ALBUMIN 4.2 g/dl (3.4-5.0); ALK PHOS 98 U/L (45-117); ANION GAP 8 (8-16); BILIRUBIN,TOTAL 0.6 mg/dL (0.2-1.0); CALCIUM 9.5 mg/dL (8.5-10.1); CO2 28 mmol/L (21-32); COCKROFT - GAULT 65.48; CREATININE 0.8 mg/dL (0.7-1.3); GLUCOSE,RANDOM 88 mg/dL (74-106); SGOT/AST 26 U/L (15-37); SGPT/ALT 20 U/L (12-78); TOT PROT 8.7 g/dl (6.4-8.2)
--- NOTE | 2016-10-30 11:03 | CONSULT ---
[facility] Psychiatric Consult - Data Date of interview: 10/30/16 Admission source: [facility] Identifying data: Another admission to [facility] for this 61 y/o male seeking detox treatment on for heroin dependence.Patient is , domiciled,unemployed and supported on Social Security benefits. Substance Abuse History: - Smoking Cessation. Smoking history: Never smoked. Have you smoked in the past 12 months: No. Hx Chewing Tobacco Use: No. Initiated information on smoking cessation: No. - Substance & Tx. History. Hx Alcohol Use: No. Hx Substance Use: Yes. Substance Use Type: Opiates. Hx Substance Use Treatment: Yes. - Substances Abused. Heroin. Route: Inhalation. Frequency: Daily. Amount used: 22 bags. Age of first use: 12. Date of Last Use: 10/28/16. Street methadone. Route: Oral. Frequency: 1-3 times last 30 days. Amount used: 60 mg. Age of first use: 33. Date of Last Use: 10/28/16. Confirmed by patient. Medical History: Liver disease,hepatitis C and myocardial infarction in 2006 ( deliberate drug overdose). Psychiatric History: No reported history of psychiatric hospitalizations in spite of a background of two suicide attempts (overdose with drugs).Patient states that he used to be prescribed effexor,ambien and zyprexa at the time of his affiliation with [facility] program (stopped OPD treatment in 2006).Diagnosed with MDD and Anxiety Disorder.Patient is known to [facility]. Physical/Sexual Abuse/Trauma History: Patient denies history of sexual abuse.Mr Payan reports the loss of two wives (2006 + 2009) to medical illnesses.Traumatized by these losses (occasional fashbacks,nightmares and mood dysregulation). Additional Comment: Urine Drug Screen Results: OPI-Opiates, MTD-Methadone, TCA- Tricyclic Antidepressant.Noted. Mental Status Exam - Mental Status Exam Alert and Oriented to: Time, Place, Person Cognitive Function: Good Patient Appearance: Well Groomed Mood: Sad, Nervous, Withdrawn, Anxious Affect: Constricted Patient Behavior: Crying (emotionally incontinent), Cooperative Speech Pattern: Clear (salvadorean speaking) Voice Loudness: Normal Thought Process: Goal Oriented Thought Disorder: Not Present Hallucinations: Auditory (hears voices whispering commands to kill people), Visual (sees spiders,snakes and demons in his room) Homicidal Ideation: Current, Plan (to stab or shoot people in the streets) Insight/Judgement: Poor, Impaired Sleep: Poorly, Difficulty falling asleep Appetite: Poor, Weight loss Muscle strength/Tone: Normal Gait/Station: Normal Psychiatric Findings - Problem List ([place] 1, 2,3) (1) Major depress, sev w/ psych Current Visit: Yes Status: Acute (2) Opioid dependence with withdrawal Current Visit: Yes Status: Acute (3) GERD (gastroesophageal reflux disease) Current Visit: Yes Status: Chronic Qualifiers: Esophagitis presence: without esophagitis Qualified Code(s): K21.9 - Gastro-esophageal reflux disease without esophagitis (4) Hepatitis C antibody test positive Current Visit: Yes Status: Resolved (5) Insomnia Current Visit: No Status: Acute - Initial Treatment Plan Initial Treatment Plan: Detoxification treatment is initiated.Will start seroquel 100 mg po bid.Side effects/benefits discussed with the patient.Mr Payan is placed on 1:1 Constant Observation for safety.Converted to 2 PC status while awaiting transfer to a psychiatric facility for inpatient care.Case discussed with the Multidisciplinary team.Disposition is discussed with patient (given notice of rights).
[2016-10-30] MEDS: QUEtiapine FUMARATE 50 MG TABLET PO SCH ×2 (11:31→23:10)
--- NOTE | 2016-10-30 12:13 | PN ---
BHS COWS - Scale Resting Pulse: 1= [place] 81-100 Sweatin= Chills/Flushing Restless Observation: 1= Difficult to Sit Still Pupil Size: 0= Normal to Room Light Bone or Joint Aches: 2= Severe Diffuse Aches Runny Nose/ Eye Tearin= Nasal Congestion GI Upset > 30mins: 2= Nausea/Diarrhea Tremor Observation of Outstretched Hands: 2= Slight Tremor Visible Yawning Observation: 1= 1-2x During Session Anxiety or Irritability: 2=Irritable/Anxious Goose Flesh Skin: 3=Piloerection COWS Score: 16 BHS Progress Note (SOAP) Subjective: Nausea, H/A, Interrupted Sleep, Tremors, Sweating, Body Aches. Objective: PT. A & O X 2 (DISORIENTED ABOUT DAY / DATE). PT. OBSERVED AMBULATING ON UNIT. 10/30/16 12:10 Vital Signs Temperature 98.0 F 10/30/16 10:07 Pulse Rate 91 H 10/30/16 10:07 Respiratory Rate 16 10/30/16 10:07 Blood Pressure 100/62 10/30/16 10:07 O2 Sat by Pulse Oximetry (%) Laboratory Tests 10/30/16 10/30/16 06:00 06:00 WBC 6.0 RBC 4.61 Hgb 13.3 D Hct 39.7 MCV 86.2 MCHC 33.5 RDW 14.2 Plt Count 228 MPV 8.7 D Sodium 141 Potassium 4.7 Chloride 105 Carbon Dioxide 28 Anion Gap 8 BUN 12 D Creatinine 0.8 Creat Clearance w eGFR > 60 Random Glucose 88 Calcium 9.5 Total Bilirubin 0.6 D AST 26 D ALT 20 Alkaline Phosphatase 98 Total Protein 8.7 H Albumin 4.2 D LABS NOTED. Assessment: 10/30/16 12:11 WITHDRAWAL SYMPTOMS. Plan: CONTINUE DETOX. PRN ZOFRAN SL FOR NAUSEA. RECEIVED NOTICE FROM Daphne NAVARRETE RN THAT PATIENT PLACED ON 1:1 CONTINUOUS STAFF OBSERVATION BY PSYCHIATRIST DR. CATHERINE MD UPON PSYCHIATRIC CONSULT (DUE TO HOMICIDAL IDEATION). WILL CONTINUE TO MONITOR.
[2016-10-30 13:21] LABS: HIV 1 & 2 AB NEGATIVE; HIV 1 AGp24 NEGATIVE
--- NOTE | 2016-10-30 15:12 | PN ---
S Progress Note (SOAP) Subjective: Patient reports Homicidal Ideation during consultation with Psychiatrist Dr. Lidia Fallon MD. Patient recommended by Dr. Vasyl MD [facility] and treatment. Patient evaluated and medically stable for transfer. Maged Palmer NP
--- NOTE | 2016-10-30 15:14 | PN ---
[facility] Progress Note Note: Patient reports Homicidal Ideation during consultation with Psychiatrist Dr. Lidia Fallon MD. Patient recommended by Dr. Vasyl MD to [facility] to [facility] for further evaluation and treatment. Patient medically evaluated and medically stable for transfer. Maged Palmer NP.
[2016-10-30] MEDS: THIAMINE HCL 100 MG TABLET (FP) PO SCH (23:10)
[2016-10-31] MEDS: diazePAM 5 MG TABLET PO PRN (08:39)
[2016-10-31 09:38] VITALS: BP 142/81; PULSE 80; TEMP 98.3
[2016-10-31] MEDS ORDERED: METHADONE HCL 5 MG TABLET (FOR DETOX USE ONLY) PO ONE (10:00)
[2016-10-31] MEDS: PRENATAL VITAMINS W/ FOLIC ACID TABLET (FP) PO SCH (10:05)
[2016-10-31] MEDS: QUEtiapine FUMARATE 50 MG TABLET PO SCH (10:06)
[2016-10-31] MEDS: RANITIDINE HCL 150 MG TABLET (FP) PO SCH (10:06)
--- NOTE | 2016-10-31 10:09 | PN ---
[facility] Progress Note Note: Psychiatry Attending's note : Unsuccessful search for hospital beds. Calls made to several facilities. [facility] [phone] [facility] [phone] [facility] [phone] [facility] [phone] [facility] [phone] [facility] [phone] [facility] [phone] [facility] [phone] No beds available. In the meantime,the patient continues to complain of auditory hallucinations commanding him to hurt self and others. Mr Payan is potentially impulsive,unpredictable.He is posing a high risk to self/ others. Patient cannot be managed on a detox unit.This crisis has reached the level of an emergency. EMS is called for assistance.Patient is transferred to the psychiatric emergency department at [facility] for appropriate care.
--- NOTE | 2016-10-31 15:13 | DS ---
[facility] Detox Discharge Summary Admission Date: 10/29/16 Discharge Date: 10/31/16 - History Present History: Opioid Dependence Additional Comments: PATIENT REPORTING AUDITORY HALLUCINATIONS WITH HOMICIDAL IDEATION TO PSYCHIATRIST DR. Lidia ALEXANDER MD. PER ORDER OF DR. ALEXANDER, PATIENT TO BE TRANSFERRED TO [facility] FOR FURTHER EVALUATION / TREATMENT. PATIENT TAKEN VIA AMBULANCE. Pertinent Past History: GERD, Hep C, Depression. - Physical Exam Results Vital Signs: Vital Signs Temperature 98.3 F 10/31/16 09:37 Pulse Rate 80 10/31/16 09:37 Respiratory Rate 18 10/31/16 09:37 Blood Pressure 142/81 10/31/16 09:37 O2 Sat by Pulse Oximetry (%) Pertinent Admission Physical Exam Findings: WITHDRAWAL SYMPTOMS. Laboratory Tests 10/30/16 10/30/16 10/30/16 06:00 06:00 06:00 WBC 6.0 RBC 4.61 Hgb 13.3 D Hct 39.7 MCV 86.2 MCHC 33.5 RDW 14.2 Plt Count 228 MPV 8.7 D Sodium 141 Potassium 4.7 Chloride 105 Carbon Dioxide 28 Anion Gap 8 BUN 12 D Creatinine 0.8 Creat Clearance w eGFR > 60 Random Glucose 88 Calcium 9.5 Total Bilirubin 0.6 D AST 26 D ALT 20 Alkaline Phosphatase 98 Total Protein 8.7 H Albumin 4.2 D RPR Titer Nonreactive HIV 1&2 Antibody Screen HIV P24 Antigen 10/30/16 06:15 WBC RBC Hgb Hct MCV MCHC RDW Plt Count MPV Sodium Potassium Chloride Carbon Dioxide Anion Gap BUN Creatinine Creat Clearance w eGFR Random Glucose Calcium Total Bilirubin AST ALT Alkaline Phosphatase Total Protein Albumin RPR Titer HIV 1&2 Antibody Screen Negative HIV P24 Antigen Negative LABS NOTED. - Treatment Hospital Course: Detox Protocol Followed, Detoxed Safely, Discharged Condition Good Patient has Accepted a Rehab Referral to: TRANSFER TO PSYCH. UNIT. SEE ABOVE. - Medication Discharge Medications: Ambulatory Orders NK [No Known Home Medication] 10/29/16 - Diagnosis (1) Major depress, sev w/ psych Status: Acute (2) Opioid dependence with withdrawal Status: Acute (3) GERD (gastroesophageal reflux disease) Status: Chronic Qualifiers: Esophagitis presence: without esophagitis Qualified Code(s): K21.9 - Gastro-esophageal reflux disease without esophagitis (4) Hep C w/o coma, chronic Status: Chronic (5) Insomnia Status: Acute Qualifiers: Insomnia type: unspecified Qualified Code(s): G47.00 - Insomnia, unspecified - AMA Did Patient Leave Against Medical Advice: No
[2016-11-01] MEDS ORDERED: METHADONE HCL 5 MG TABLET (FOR DETOX USE ONLY) PO ONE (10:00)
[2016-11-02] MEDS ORDERED: METHADONE HCL 10 MG TABLET (FOR DETOX USE ONLY) PO ONE (10:00)
[2016-11-03] MEDS ORDERED: METHADONE HCL 5 MG TABLET (FOR DETOX USE ONLY) PO ONE (06:00)
== END 2016-10-31 11:56 | disposition short-term general hospital (02) | DRG 773 ==
LOC: YASAS 11:47 → Y3N 17:39
PROVIDERS: ADMIT Internal Medicine; ATTEND Internal Medicine
PROC: HZ2ZZZZ Detoxification Services for Substance Abuse Treatment (ICD-10-PCS; principal; 2016-10-31)
DX: F11.23 Opioid dependence with withdrawal (principal); G47.00 Insomnia, unspecified; F32.89 Other specified depressive episodes; F34.1 Dysthymic disorder; B18.2 Chronic viral hepatitis C; K21.9 Gastro-esophageal reflux disease without esophagitis
CPT/HCPCS: 36415; 80053; 85027; 86593; 87389; 93005; 93010

== ENCOUNTER 2017-08-23 11:02 | Inpatient (IN) | payer OTHER ==
[2017-08-23 12:41] VITALS: BMI 15.5
--- NOTE | 2017-08-23 14:00 | HP ---
COWS - Scale Resting Pulse: 0= [place] 80 or Below Sweatin=Flushed/Facial Moisture Restless Observation: 1= Difficult to Sit Still Pupil Size: 1= Pupils >than Normal Bone or Joint Aches: 2= Severe Diffuse Aches Runny Nose/ Eye Tearin= Nasal Congestion GI Upset > 30mins: 1= Stomach Cramp Tremor Observation: 1= Tremor [place], Not Seen Yawning Observation: 1= 1-2x During Session Anxiety or Irritability: 2=Irritable/Anxious Goose Flesh Skin: 0=Smooth Skin COWS Score: 12 Admission [facility] Chief Complaint: Heroin withdrawal symptoms. Allergies/Adverse Reactions: Allergies Allergy/AdvReac Type Severity Reaction Status Date / Time No Known Allergies Allergy Verified 08/23/17 12:53 History of Present Illness: Patient presents for Heroin withdrawal. Sniffs heroin and takes non-prescribed methadone liquid. Last dose of heroin yesterday and Methadone 3 days ago. Was admitted to [facility] 10/2016 and after 2 days was taken to [facility] for Suicide ideation. After discharge from psychiatric faciltiy patient did not continue with rehab services. Denies SI and recent suicide attempts. Exam Limitations: No Limitations - Ebola screening Have you traveled outside of the country in the last 21 days: No Have you had contact with anyone from an Ebola affected area: No Have you been sick,other than usual withdrawal symptoms: No Do you have a fever: No - Review of Systems Constitutional: Night Sweats, Changes in sleep, Unexplained wgt Loss EENT: reports: Tearing, Nose Congestion Respiratory: reports: No Symptoms reported Cardiac: reports: Chest Tightness (has episodes of chest tightness. Denies SOB and chest pain today.) GI: reports: Constipated, Poor Fluid Intake, Abdominal cramping : reports: No Symptoms Reported Musculoskeletal: reports: Back Pain, Joint Pain, Muscle Pain Integumentary: reports: Sweating Neuro: reports: Headache, Tremors Endocrine: reports: Unexplained Weight Loss Hematology: reports: No Symptoms Reported Psychiatric: reports: Orientated x3, Anxious, Depressed Patient History - Patient Medical History Hx Anemia: Yes (Reports history) Hx Asthma: No Hx Chronic Obstructive Pulmonary Disease (COPD): No Hx Cancer: No Hx Cardiac Disorders: No Hx Congestive Heart Failure: No Hx Hypertension: No Hx Hypercholesterolemia: No Hx Pacemaker: No HX Cerebrovascular Accident: No Hx Seizures: No Hx Dementia: No Hx Diabetes: No Hx Gastrointestinal Disorders: Yes (acid reflux) Hx Liver Disease: Yes Hx Genitourinary Disorders: No Hx Sexually Transmitted Disorders: No Hx Renal Disease (ESRD): No Hx Thyroid Disease: No Hx Human Immunodeficiency Virus (HIV): No Hx Hepatitis C: Yes (TREATED IN 2011) Hx Depression: Yes Hx Suicide Attempt: Yes (pill overdose in 2006) Hx Bipolar Disorder: No Hx Schizophrenia: Yes - Patient Surgical History Past Surgical History: Yes Hx Neurologic Surgery: No Hx Cataract Extraction: No Hx Cardiac Surgery: No Hx Lung Surgery: No Hx Breast Surgery: No Hx Breast Biopsy: No Hx Abdominal Surgery: Yes (umbilical hernia repair in 2013) Hx Appendectomy: No Hx Cholecystectomy: Yes (in 2013) Hx Genitourinary Surgery: No Hx Section: No Hx Orthopedic Surgery: No Anesthesia Reaction: No - PPD History Previous Implant?: Yes Documented Results: Negative w/proof Implanted On Prior [facility] Admission?: Yes Date: 06/30/16 Results: 0 mm - Smoking Cessation Smoking history: Former smoker Have you smoked in the past 12 months: No If you are a former smoker, when did you quit?: tristin ge 24 Hx Chewing Tobacco Use: No Initiated information on smoking cessation: No - Substances Abused Heroin Route: Inhalation Frequency: Daily Amount used: 3 bags Age of first use: 12 Date of Last Use: 08/22/17 Family Disease History - Family Disease History Family Disease History: Heart Disease: Mother (HTN,COPD ), Respiratory: Mother, Other: Father (CVA ) Admission Physical Exam S - Vital Signs Vital Signs: Vital Signs - 24 hr 08/23/17 12:39 Temperature 97.9 F Pulse Rate 68 Respiratory 18 Rate Blood Pressure 126/70 - Physical General Appearance: Yes: Within Normal Limits, No Apparent Distress, Appropriately Dressed, Cachetic HEENTM: Yes: Normal Voice, MEHREEN, Nasal Congestion Respiratory: Yes: Within Normal Limits, Chest Non-Tender, Lungs Clear, Normal Breath Sounds, No Respiratory Distress, No Accessory Muscle Use Neck: Yes: Within Normal Limits, No masses,lesions,Nodules Breast: Yes: Breast Exam Deferred Cardiology: Yes: Within Normal Limits, Regular Rhythm, Regular Rate, S1, S2 Abdominal: Yes: Within Normal Limits, Normal Bowel Sounds, Non Tender, Soft Genitourinary: Yes: Within Normal Limits Back: Yes: Within Normal Limits, Normal Inspection, Muscle Spasm Musculoskeletal: Yes: Within Normal Limits, full range of Motion, Gait Steady, Back pain Extremities: Yes: Within Normal Limits, Normal Inspection, Normal Range of Motion Neurological: Yes: Within Normal Limits, caretaker resort II-XII NML intact, Fully Oriented, Normal Response Integumentary: Yes: Normal Color, Moist Lymphatic: Yes: Within Normal Limits - Diagnostic (1) Insomnia Current Visit: Yes Status: Acute Qualifiers: Insomnia type: unspecified Qualified Code(s): G47.00 - Insomnia, unspecified (2) Major depress, sev w/ psych Current Visit: Yes Status: Acute (3) Opioid dependence with withdrawal Current Visit: Yes Status: Acute (4) GERD (gastroesophageal reflux disease) Current Visit: Yes Status: Chronic Qualifiers: Esophagitis presence: without esophagitis Qualified Code(s): K21.9 - Gastro -esophageal reflux disease without esophagitis Cleared for Admission [facility] - Detox or Rehab [facility] Level of Care: Medically Managed Detox Regimen/Protocol: Methadone [facility] Breath Alcohol Content Breath Alcohol Content: 0 Urine Drug Screen - Results Drug Screen Negative: No Urine Drug Screen Results: OPI-Opiates, MTD-Methadone Inpatient Rehab Admission - Initial Determination Are CD services needed?: Yes Free of communicable disease: Yes Not in need of hospitalization: Yes - Rehab Admission Criteria Previous failed treatment: Yes Poor recovery environment: Yes Comorbidities: Yes Lacks judgement: Yes
[2017-08-23] MEDS ORDERED: LOPERAMIDE HCL 2 MG CAPSULE PO PRN (14:17)
[2017-08-23] MEDS ORDERED: guaiFENesin/D-METHORPHAN HB 10 ML UNIT-DOSE CUPS PO PRN (14:17)
[2017-08-23] MEDS ORDERED: MAG HYDROX/AL HYDROX/SIMETH 30 ML UNIT-DOSE CUP PO PRN (14:17)
[2017-08-23] MEDS ORDERED: MENTHOL/PHENOL 1 EACH UD MM PRN (14:17)
[2017-08-23] MEDS ORDERED: P-EPHED 60MG/TRIPROLIDI 2.5MG TABLET PO PRN (14:17)
[2017-08-23] MEDS ORDERED: hydrOXYzine PAMOATE 50 MG CAPSULE (FP) PO PRN (14:17)
[2017-08-23] MEDS ORDERED: MAGNESIUM CITRATE 300 ML BOTTLE PO PRN (14:17)
[2017-08-23] MEDS ORDERED: ACETAMINOPHEN 325 MG TABLET (FP) PO PRN (14:17)
[2017-08-23] MEDS ORDERED: METHADONE HCL 10 MG TABLET (FOR DETOX USE ONLY) PO ONE ×2 (15:00→23:00)
[2017-08-23] MEDS: diazePAM 5 MG TABLET PO PRN ×2 (16:34→22:12)
[2017-08-23] MEDS: DOCUSATE SODIUM 100 MG CAPSULE (FP) PO PRN (16:34)
[2017-08-23 16:51] LABS: URINE APPEARANCE CLEAR; URINE BILIRUBIN NEGATIVE (<2.0 mg/dL); URINE BLOOD NEGATIVE (NEGATIVE); URINE COLOR LTYELLOW; URINE GLUCOSE (UA) NEGATIVE (NEGATIVE); URINE KETONE NEGATIVE (NEGATIVE); URINE LEUK ESTERASE NEGATIVE (NEGATIVE); URINE NITRITE NEGATIVE (NEGATIVE); URINE PROTEIN NEGATIVE (NEGATIVE); URINE UROBILINOGEN NEGATIVE mg/dL (0.2-1.0)
[2017-08-23] MEDS: MELATONIN 5 MG TABLETS PO SCH (22:11)
[2017-08-23] MEDS: THIAMINE HCL 100 MG TABLET (FP) PO SCH (22:11)
[2017-08-24] MEDS ORDERED: METHADONE HCL 10 MG TABLET (FOR DETOX USE ONLY) PO ONE (10:00)
[2017-08-24 10:01] LABS: HEMATOCRIT 36.8 % (35.4-49); HEMOGLOBIN 12.3 GM/dL (11.7-16.9); MCH 28.9 pg (25.7-33.7); MCHC 33.5 g/dl (32.0-35.9); MEAN CELL VOLUME 86.3 fl (80-96); MEAN PLT VOLUME 8.5 fl (7.5-11.1); PLATELET COUNT 231 K/MM3 (134-434); RBC 4.27 M/mm3 (4.00-5.60); RDW 14.1 % (11.9-15.9); WHITE BLOOD COUNT 6.8 K/mm3 (4.0-10.0)
[2017-08-24] MEDS: PRENATAL VITAMINS W/ FOLIC ACID TABLET (FP) PO SCH (10:15)
[2017-08-24] MEDS: diazePAM 5 MG TABLET PO PRN (10:17)
[2017-08-24 10:23] LABS: CHLORIDE 105 mmol/L (98-107); POTASSIUM 4.4 mmol/L (3.5-5.1); SODIUM 137 mmol/L (136-145)
[2017-08-24 10:41] LABS: ALBUMIN 3.7 g/dl (3.4-5.0); ALK PHOS 100 U/L (45-117); ANION GAP 5 (8-16); BILIRUBIN,TOTAL 0.2 mg/dL (0.2-1.0); BLOOD UREA NITROGEN 17 mg/dL (7-18); CALCIUM 8.8 mg/dL (8.5-10.1); CO2 27 mmol/L (21-32); CREATININE 0.5 mg/dL (0.7-1.3); GLUCOSE,RANDOM 94 mg/dL (74-106); SGOT/AST 23 U/L (15-37); SGPT/ALT 25 U/L (12-78); TOT PROT 7.7 g/dl (6.4-8.2)
--- NOTE | 2017-08-24 10:54 | PN ---
BHS COWS - Scale Resting Pulse: 0= [place] 80 or Below Sweatin=Flushed/Facial Moisture Restless Observation: 1= Difficult to Sit Still Pupil Size: 0= Normal to Room Light Bone or Joint Aches: 1= Mild Discomfort Runny Nose/ Eye Tearin= None GI Upset > 30mins: 2= Nausea/Diarrhea Tremor Observation of Outstretched Hands: 0= None Yawning Observation: 1= 1-2x During Session Anxiety or Irritability: 2=Irritable/Anxious Goose Flesh Skin: 3=Piloerection COWS Score: 12 BHS Progress Note (SOAP) Subjective: Stomach Cramping, Nausea, H/A, Interrupted Sleep, Constipation. Objective: PATIENT A & O X 3. NO ACUTE DISTRESS. 08/24/17 10:52 Vital Signs Temperature 96.7 F L 08/24/17 09:21 Pulse Rate 63 08/24/17 09:21 Respiratory Rate 2 L 08/24/17 09:21 Blood Pressure 115/73 08/24/17 09:21 O2 Sat by Pulse Oximetry (%) Laboratory Tests 08/23/17 08/24/17 16:50 05:50 WBC 6.8 RBC 4.27 Hgb 12.3 Hct 36.8 MCV 86.3 MCH 28.9 MCHC 33.5 RDW 14.1 Plt Count 231 MPV 8.5 Urine Color Ltyellow Urine Appearance Clear Urine pH 5.0 Ur Specific [place] 1.014 Urine Protein Negative Urine Glucose (UA) Negative Urine Ketones Negative Urine Blood Negative Urine Nitrite Negative Urine Bilirubin Negative Urine Urobilinogen Negative Ur Leukocyte Esterase Negative LABS NOTED. CMP, RPR RESULTS PENDING. 08/24/17 10:53 Assessment: 08/24/17 10:53 WITHDRAWAL SYMPTOMS. Plan: CONTINUE DETOX. INCREASE DAILY PO FLUID INTAKE. PRN MOM FOR CONSTIPATION.
--- NOTE | 2017-08-24 11:12 | CONSULT ---
[facility] Psychiatric Consult - Data Date of interview: 08/24/17 Admission source: [facility] Identifying data: One of multiple admissions to [facility] for this 62 y/o male seeking detox treatment on for heroin dependence.Patient is ,domiciled,unemployed and supported on Social Security benefits. Substance Abuse History: Discussed with the patient.Mr Payan endorses a 50 year history of heroin dependence (snorts 3 bags/day).Used to snort 22 bags in the past. Details in the current [facility] report : Smoking history: Former smoker. Have you smoked in the past 12 months: No. If you are a former smoker, when did you quit?: tristin ge 24. Hx Chewing Tobacco Use: No. Initiated information on smoking cessation: No. - Substances Abused. Heroin. Route: Inhalation. Frequency: Daily. Amount used: 3 bags. Age of first use: 12. Date of Last Use : 08/22/17 Medical History: GERD,anemia,liver disease,hepatitis C,antecedent of myocardial infarction (2006) and a history of umbilical herniorraphy + cholecystectomy ( 2013). Psychiatric History: Recent history of psychiatric hospitalizations (2017) at [facility] (one overnight stay for observation + a 15 day retention for psychosis/suicidal ideation).Diagnosed with Schizoaffective Disorder.Used to be prescribed effexor,ambien and zyprexa at the time of his affiliation with [facility] program (stopped OPD treatment in 2006).Mr Payan is chronically non-adherent to psychotropic medications and OPD care.He is currently assigned to [facility] mental health clinic for his aftercare.Medications consist of seroquel 100 mg/hs + cogentin.No longer on olanzapine 15 mg/hs (last refill : 04/21/2017 at [facility]).Patient endorses a history of two suicide attempts (overdose with drugs). Physical/Sexual Abuse/Trauma History: No history of abuse.Traumatized by the of two wives (2006 + 2009) from medical illnesses. Additional Comment: Urine Drug Screen Results: OPI-Opiates, MTD-Methadone.Noted. Mental Status Exam - Mental Status Exam Alert and Oriented to: Time, Place, Person Cognitive Function: Good Patient Appearance: Well Groomed (small stature,thin,frail habitus) Mood: Withdrawn, Anxious Affect: Mood Congruent, Constricted Patient Behavior: Fatigued, Appropriate, Cooperative Speech Pattern: Clear, Appropriate (togolese-speaking) Voice Loudness: Normal Thought Process: Intact, Goal Oriented Thought Disorder: Not Present Hallucinations: Denies Suicidal Ideation: Denies Homicidal Ideation: Denies Insight/Judgement: Poor Sleep: Poorly, Difficulty falling asleep Appetite: Poor, Weight loss Muscle strength/Tone: Normal Gait/Station: Normal Psychiatric Findings - Problem List ([place] 1, 2,3) (1) Opioid dependence with withdrawal Current Visit: Yes Status: Acute (2) Schizoaffective disorder Current Visit: Yes Status: Chronic (3) Insomnia Current Visit: Yes Status: Acute Qualifiers: Insomnia type: unspecified Qualified Code(s): G47.00 - Insomnia, unspecified - Initial Treatment Plan Initial Treatment Plan: Records are revisited.Psychoeducation.Sleep hygiene.Detoxification in progress.Medications : seroquel 100 mg po hs.Side effects/benefits discussed with patient.Patient declines to resume olanzapine.No justification for cogentin (patient is currently complaining of severe constipation).Mr Payan has expressed his agreement to this plan of care.Observation.
[2017-08-24] MEDS: MAGNESIUM HYDROX 2400MG/30ML ORAL SUSPENSION 30 ML CUP PO PRN (12:04)
--- NOTE | 2017-08-24 16:50 | EKG ---
Test Reason : Blood Pressure : / mmHG Vent. Rate : 064 BPM Atrial Rate : 064 BPM P-R Int : 156 ms QRS Dur : 080 ms QT Int : 414 ms P-R-T Axes : 058 053 022 degrees QTc Int : 427 ms SINUS RHYTHM WITH PREMATURE ATRIAL COMPLEXES OTHERWISE NORMAL ECG WHEN COMPARED WITH ECG OF 29-OCT-2016 17:41, PREMATURE ATRIAL COMPLEXES ARE NOW PRESENT Confirmed by MD Shelby, Mango ([id number]) on 08/24/2017 4:50:16 PM Referred By: Confirmed By:Mango Ryan MD
[2017-08-24] MEDS: MELATONIN 5 MG TABLETS PO SCH (22:28)
[2017-08-24] MEDS: QUEtiapine FUMARATE 100 MG TABLET (FP) PO SCH (22:28)
[2017-08-24] MEDS: THIAMINE HCL 100 MG TABLET (FP) PO SCH (22:28)
[2017-08-25] MEDS: diazePAM 5 MG TABLET PO PRN ×2 (04:44→22:19)
[2017-08-25] MEDS ORDERED: METHADONE HCL 5 MG TABLET (FOR DETOX USE ONLY) PO ONE (10:00)
[2017-08-25] MEDS: PRENATAL VITAMINS W/ FOLIC ACID TABLET (FP) PO SCH (10:23)
[2017-08-25] MEDS: DOCUSATE SODIUM 100 MG CAPSULE (FP) PO PRN (10:26)
--- NOTE | 2017-08-25 12:19 | PN ---
BHS COWS - Scale Resting Pulse: 1= [place] 81-100 Sweatin= Chills/Flushing Restless Observation: 0= Sits Still Pupil Size: 0= Normal to Room Light Bone or Joint Aches: 0= None Runny Nose/ Eye Tearin= Runny Nose/Eyes GI Upset > 30mins: 2= Nausea/Diarrhea Tremor Observation of Outstretched Hands: 2= Slight Tremor Visible Yawning Observation: 1= 1-2x During Session Anxiety or Irritability: 2=Irritable/Anxious Goose Flesh Skin: 3=Piloerection COWS Score: 14 BHS Progress Note (SOAP) Subjective: Stomach Cramping, Sweating, Fatigue, Anxious, Constipation. Objective: PATIENT A & O X 3. NO ACUTE DISTRESS. 08/25/17 12:20 Vital Signs Temperature 96.6 F L 08/25/17 09:21 Pulse Rate 82 08/25/17 09:21 Respiratory Rate 16 08/25/17 09:21 Blood Pressure 122/78 08/25/17 09:21 O2 Sat by Pulse Oximetry (%) Laboratory Tests 08/23/17 08/24/17 08/24/17 16:50 05:50 05:50 WBC 6.8 RBC 4.27 Hgb 12.3 Hct 36.8 MCV 86.3 MCH 28.9 MCHC 33.5 RDW 14.1 Plt Count 231 MPV 8.5 Sodium 137 Potassium 4.4 Chloride 105 Carbon Dioxide 27 Anion Gap 5 L BUN 17 D Creatinine 0.5 L D Creat Clearance w eGFR > 60 Random Glucose 94 Calcium 8.8 Total Bilirubin 0.2 D AST 23 ALT 25 D Alkaline Phosphatase 100 Total Protein 7.7 Albumin 3.7 Urine Color Ltyellow Urine Appearance Clear Urine pH 5.0 Ur Specific [place] 1.014 Urine Protein Negative Urine Glucose (UA) Negative Urine Ketones Negative Urine Blood Negative Urine Nitrite Negative Urine Bilirubin Negative Urine Urobilinogen Negative Ur Leukocyte Esterase Negative RPR Titer 08/24/17 05:50 WBC RBC Hgb Hct MCV MCH MCHC RDW Plt Count MPV Sodium Potassium Chloride Carbon Dioxide Anion Gap BUN Creatinine Creat Clearance w eGFR Random Glucose Calcium Total Bilirubin AST ALT Alkaline Phosphatase Total Protein Albumin Urine Color Urine Appearance Urine pH Ur Specific [place] Urine Protein Urine Glucose (UA) Urine Ketones Urine Blood Urine Nitrite Urine Bilirubin Urine Urobilinogen Ur Leukocyte Esterase RPR Titer Nonreactive LABS NOTED. Assessment: 08/25/17 12:21 WITHDRAWAL SYMPTOMS. Plan: CONTINUE DETOX. INCREASE DAILY PO FLUID INTAKE. PRN MOM FOR CONSTIPATION.
[2017-08-25] MEDS: MELATONIN 5 MG TABLETS PO SCH (22:19)
[2017-08-25] MEDS: THIAMINE HCL 100 MG TABLET (FP) PO SCH (22:19)
[2017-08-25] MEDS: QUEtiapine FUMARATE 100 MG TABLET (FP) PO SCH (22:19)
[2017-08-26] MEDS ORDERED: METHADONE HCL 5 MG TABLET (FOR DETOX USE ONLY) PO ONE (10:00)
[2017-08-26] MEDS: PRENATAL VITAMINS W/ FOLIC ACID TABLET (FP) PO SCH (10:13)
[2017-08-26] MEDS: DOCUSATE SODIUM 100 MG CAPSULE (FP) PO PRN ×2 (10:14→22:32)
[2017-08-26] MEDS: diazePAM 5 MG TABLET PO PRN (13:01)
--- NOTE | 2017-08-26 16:45 | PN ---
[facility] Progress Note (SOAP) Subjective: Sweating, Stomach Cramping, Anxious, Constipation. Objective: PATIENT A & O X 3, OBSERVED AMBULATING ON UNIT. NO ACUTE DISTRESS. 08/26/17 16:43 Vital Signs Temperature 96.9 F L 08/26/17 13:24 Pulse Rate 88 08/26/17 13:24 Respiratory Rate 18 08/26/17 13:24 Blood Pressure 151/80 08/26/17 13:24 O2 Sat by Pulse Oximetry (%) Laboratory Tests 08/23/17 08/24/17 08/24/17 16:50 05:50 05:50 WBC 6.8 RBC 4.27 Hgb 12.3 Hct 36.8 MCV 86.3 MCH 28.9 MCHC 33.5 RDW 14.1 Plt Count 231 MPV 8.5 Sodium 137 Potassium 4.4 Chloride 105 Carbon Dioxide 27 Anion Gap 5 L BUN 17 D Creatinine 0.5 L D Creat Clearance w eGFR > 60 Random Glucose 94 Calcium 8.8 Total Bilirubin 0.2 D AST 23 ALT 25 D Alkaline Phosphatase 100 Total Protein 7.7 Albumin 3.7 Urine Color Ltyellow Urine Appearance Clear Urine pH 5.0 Ur Specific [place] 1.014 Urine Protein Negative Urine Glucose (UA) Negative Urine Ketones Negative Urine Blood Negative Urine Nitrite Negative Urine Bilirubin Negative Urine Urobilinogen Negative Ur Leukocyte Esterase Negative RPR Titer 08/24/17 05:50 WBC RBC Hgb Hct MCV MCH MCHC RDW Plt Count MPV Sodium Potassium Chloride Carbon Dioxide Anion Gap BUN Creatinine Creat Clearance w eGFR Random Glucose Calcium Total Bilirubin AST ALT Alkaline Phosphatase Total Protein Albumin Urine Color Urine Appearance Urine pH Ur Specific [place] Urine Protein Urine Glucose (UA) Urine Ketones Urine Blood Urine Nitrite Urine Bilirubin Urine Urobilinogen Ur Leukocyte Esterase RPR Titer Nonreactive LABS NOTED. Assessment: 08/26/17 16:43 WITHDRAWAL SYMPTOMS. Plan: CONTINUE DETOX. INCREASE DAILY PO FLUID INTAKE. PRN MOM FOR CONSTIPATION.
[2017-08-26] MEDS: QUEtiapine FUMARATE 100 MG TABLET (FP) PO SCH (22:32)
[2017-08-26] MEDS: THIAMINE HCL 100 MG TABLET (FP) PO SCH (22:32)
[2017-08-26] MEDS: MELATONIN 5 MG TABLETS PO SCH (22:32)
[2017-08-27] MEDS ORDERED: METHADONE HCL 10 MG TABLET (FOR DETOX USE ONLY) PO ONE (10:00)
[2017-08-27] MEDS: PRENATAL VITAMINS W/ FOLIC ACID TABLET (FP) PO SCH (10:07)
[2017-08-27] MEDS: DOCUSATE SODIUM 100 MG CAPSULE (FP) PO PRN ×2 (10:08→22:26)
--- NOTE | 2017-08-27 13:04 | PN ---
[facility] Progress Note (SOAP) Subjective: Nausea, Stomach Cramping, Fatigue, Anxious, Constipation. Objective: PATIENT A & O X 3, OBSERVED AMBULATING ON UNIT. NO ACUTE DISTRESS. 08/27/17 13:01 Vital Signs Temperature 98.7 F 08/27/17 09:12 Pulse Rate 91 H 08/27/17 09:12 Respiratory Rate 20 08/27/17 09:12 Blood Pressure 114/71 08/27/17 09:12 O2 Sat by Pulse Oximetry (%) Laboratory Tests 08/23/17 08/24/17 08/24/17 16:50 05:50 05:50 WBC 6.8 RBC 4.27 Hgb 12.3 Hct 36.8 MCV 86.3 MCH 28.9 MCHC 33.5 RDW 14.1 Plt Count 231 MPV 8.5 Sodium 137 Potassium 4.4 Chloride 105 Carbon Dioxide 27 Anion Gap 5 L BUN 17 D Creatinine 0.5 L D Creat Clearance w eGFR > 60 Random Glucose 94 Calcium 8.8 Total Bilirubin 0.2 D AST 23 ALT 25 D Alkaline Phosphatase 100 Total Protein 7.7 Albumin 3.7 Urine Color Ltyellow Urine Appearance Clear Urine pH 5.0 Ur Specific [place] 1.014 Urine Protein Negative Urine Glucose (UA) Negative Urine Ketones Negative Urine Blood Negative Urine Nitrite Negative Urine Bilirubin Negative Urine Urobilinogen Negative Ur Leukocyte Esterase Negative RPR Titer 08/24/17 05:50 WBC RBC Hgb Hct MCV MCH MCHC RDW Plt Count MPV Sodium Potassium Chloride Carbon Dioxide Anion Gap BUN Creatinine Creat Clearance w eGFR Random Glucose Calcium Total Bilirubin AST ALT Alkaline Phosphatase Total Protein Albumin Urine Color Urine Appearance Urine pH Ur Specific [place] Urine Protein Urine Glucose (UA) Urine Ketones Urine Blood Urine Nitrite Urine Bilirubin Urine Urobilinogen Ur Leukocyte Esterase RPR Titer Nonreactive LABS NOTED. Assessment: 08/27/17 13:02 WITHDRAWAL SYMPTOMS. Plan: CONTINUE DETOX. INCREASE DAILY PO FLUID INTAKE. HIV AB RESULTS PENDING.
[2017-08-27] MEDS: THIAMINE HCL 100 MG TABLET (FP) PO SCH (22:26)
[2017-08-27] MEDS: MELATONIN 5 MG TABLETS PO SCH (22:26)
[2017-08-27] MEDS: QUEtiapine FUMARATE 100 MG TABLET (FP) PO SCH (22:26)
[2017-08-28] MEDS: IBUPROFEN 400 MG TABLET (FP) PO PRN ×2 (01:46→09:26)
[2017-08-28] MEDS ORDERED: METHADONE HCL 5 MG TABLET (FOR DETOX USE ONLY) PO ONE (06:00)
[2017-08-28] MEDS: PRENATAL VITAMINS W/ FOLIC ACID TABLET (FP) PO SCH (10:21)
[2017-08-28] MEDS: MAGNESIUM HYDROX 2400MG/30ML ORAL SUSPENSION 30 ML CUP PO PRN (10:21)
[2017-08-28 11:15] VITALS: BP 116/78; PULSE 83; TEMP 97.2
--- NOTE | 2017-08-28 13:53 | PN ---
S Progress Note (SOAP) Subjective: Patient denies current Detox symptoms and reports that he is feeling well overall. Objective: PATIENT A & O X 3, OBSERVED AMBULATING ON UNIT. NO ACUTE DISTRESS. 08/28/17 13:51 Vital Signs Temperature 97.2 F L 08/28/17 11:09 Pulse Rate 83 08/28/17 11:09 Respiratory Rate 18 08/28/17 11:09 Blood Pressure 116/78 08/28/17 11:09 O2 Sat by Pulse Oximetry (%) Laboratory Tests 08/23/17 08/24/17 08/24/17 16:50 05:50 05:50 WBC 6.8 RBC 4.27 Hgb 12.3 Hct 36.8 MCV 86.3 MCH 28.9 MCHC 33.5 RDW 14.1 Plt Count 231 MPV 8.5 Sodium 137 Potassium 4.4 Chloride 105 Carbon Dioxide 27 Anion Gap 5 L BUN 17 D Creatinine 0.5 L D Creat Clearance w eGFR > 60 Random Glucose 94 Calcium 8.8 Total Bilirubin 0.2 D AST 23 ALT 25 D Alkaline Phosphatase 100 Total Protein 7.7 Albumin 3.7 Urine Color Ltyellow Urine Appearance Clear Urine pH 5.0 Ur Specific [place] 1.014 Urine Protein Negative Urine Glucose (UA) Negative Urine Ketones Negative Urine Blood Negative Urine Nitrite Negative Urine Bilirubin Negative Urine Urobilinogen Negative Ur Leukocyte Esterase Negative RPR Titer HIV 1&2 Antibody Screen HIV P24 Antigen 08/24/17 08/26/17 05:50 06:00 WBC RBC Hgb Hct MCV MCH MCHC RDW Plt Count MPV Sodium Potassium Chloride Carbon Dioxide Anion Gap BUN Creatinine Creat Clearance w eGFR Random Glucose Calcium Total Bilirubin AST ALT Alkaline Phosphatase Total Protein Albumin Urine Color Urine Appearance Urine pH Ur Specific [place] Urine Protein Urine Glucose (UA) Urine Ketones Urine Blood Urine Nitrite Urine Bilirubin Urine Urobilinogen Ur Leukocyte Esterase RPR Titer Nonreactive HIV 1&2 Antibody Screen Negative HIV P24 Antigen Negative LABS NOTED. Assessment: 08/28/17 13:52 COMPLETION OF DETOX REGIMEN. Plan: PATIENT SCHEDULED FOR DISCHARGE FROM DETOX UNIT TODAY. PATIENT SCHEDULED TO GO TO [facility] FOR AFTERCARE.
--- NOTE | 2017-08-28 13:59 | DS ---
[facility] Detox Discharge Summary Admission Date: 08/23/17 Discharge Date: 08/28/17 - History Present History: Opioid Dependence Additional Comments: PATIENT GOING TO [facility] FOR AFTERCARE. PATIENT WAS DISCHARGED FROM DETOX UNIT IN STABLE MEDICAL CONDITION. Pertinent Past History: Insomnia, Depression, Hep C (Treated), GERD, Schizoaffective Disorder. - Physical Exam Results Vital Signs: Vital Signs Temperature 97.2 F L 08/28/17 11:09 Pulse Rate 83 08/28/17 11:09 Respiratory Rate 18 08/28/17 11:09 Blood Pressure 116/78 08/28/17 11:09 O2 Sat by Pulse Oximetry (%) Pertinent Admission Physical Exam Findings: WITHDRAWAL SYMPTOMS. Laboratory Tests 08/23/17 08/24/17 08/24/17 16:50 05:50 05:50 WBC 6.8 RBC 4.27 Hgb 12.3 Hct 36.8 MCV 86.3 MCH 28.9 MCHC 33.5 RDW 14.1 Plt Count 231 MPV 8.5 Sodium 137 Potassium 4.4 Chloride 105 Carbon Dioxide 27 Anion Gap 5 L BUN 17 D Creatinine 0.5 L D Creat Clearance w eGFR > 60 Random Glucose 94 Calcium 8.8 Total Bilirubin 0.2 D AST 23 ALT 25 D Alkaline Phosphatase 100 Total Protein 7.7 Albumin 3.7 Urine Color Ltyellow Urine Appearance Clear Urine pH 5.0 Ur Specific [place] 1.014 Urine Protein Negative Urine Glucose (UA) Negative Urine Ketones Negative Urine Blood Negative Urine Nitrite Negative Urine Bilirubin Negative Urine Urobilinogen Negative Ur Leukocyte Esterase Negative RPR Titer HIV 1&2 Antibody Screen HIV P24 Antigen 08/24/17 08/26/17 05:50 06:00 WBC RBC Hgb Hct MCV MCH MCHC RDW Plt Count MPV Sodium Potassium Chloride Carbon Dioxide Anion Gap BUN Creatinine Creat Clearance w eGFR Random Glucose Calcium Total Bilirubin AST ALT Alkaline Phosphatase Total Protein Albumin Urine Color Urine Appearance Urine pH Ur Specific [place] Urine Protein Urine Glucose (UA) Urine Ketones Urine Blood Urine Nitrite Urine Bilirubin Urine Urobilinogen Ur Leukocyte Esterase RPR Titer Nonreactive HIV 1&2 Antibody Screen Negative HIV P24 Antigen Negative LABS NOTED. - Treatment Hospital Course: Detox Protocol Followed, Detoxed Safely, Responded well, Discharged Condition Good, Rehab Referral Accepted Patient has Accepted a Rehab Referral to: [facility] ([facility] . - Medication Discharge Medications: Ambulatory Orders Bisacodyl [Dulcolax] 5 mg PO BID 08/23/17 Hydroxyzine HCl 100 mg PO BID PRN 08/23/17 - Diagnosis (1) Insomnia Current Visit: Yes Status: Acute Qualifiers: Insomnia type: unspecified Qualified Code(s): G47.00 - Insomnia, unspecified (2) Major depress, sev w/ psych Current Visit: Yes Status: Acute (3) Opioid dependence with withdrawal Current Visit: Yes Status: Acute (4) GERD (gastroesophageal reflux disease) Current Visit: Yes Status: Chronic Qualifiers: Esophagitis presence: without esophagitis Qualified Code(s): K21.9 - Gastro -esophageal reflux disease without esophagitis (5) Schizoaffective disorder Current Visit: Yes Status: Chronic Qualifiers: Schizoaffective disorder type: unspecified Qualified Code(s): F25.9 - Schizoaffective disorder, unspecified - AMA Did Patient Leave Against Medical Advice: No
== END 2017-08-28 15:10 | disposition other institution (70) | DRG 773 ==
LOC: YASAS 11:02 → Y3N 14:36
PROVIDERS: ADMIT Internal Medicine; ATTEND Internal Medicine
PROC: HZ2ZZZZ Detoxification Services for Substance Abuse Treatment (ICD-10-PCS; principal; 2017-08-23)
DX: F11.23 Opioid dependence with withdrawal (principal); F25.9 Schizoaffective disorder, unspecified; F33.3 Major depressive disorder, recurrent, severe with psychotic symptoms; G47.00 Insomnia, unspecified; K21.9 Gastro-esophageal reflux disease without esophagitis; B18.2 Chronic viral hepatitis C; Z87.891 Personal history of nicotine dependence; Z91.5 Personal history of self-harm
CPT/HCPCS: 36415; 80053; 81003; 85027; 86593; 87389; 93005; 93010

== ENCOUNTER 2017-08-28 13:59 | Inpatient (IN) | payer OTHER ==
[2017-08-28] MEDS ORDERED: MAGNESIUM HYDROX 2400MG/30ML ORAL SUSPENSION 30 ML CUP PO PRN (14:02)
[2017-08-28] MEDS ORDERED: P-EPHED 60MG/TRIPROLIDI 2.5MG TABLET PO PRN (14:02)
[2017-08-28] MEDS ORDERED: MAG HYDROX/AL HYDROX/SIMETH 30 ML UNIT-DOSE CUP PO PRN (14:02)
[2017-08-28] MEDS ORDERED: MAGNESIUM CITRATE 300 ML BOTTLE PO PRN (14:02)
[2017-08-28] MEDS ORDERED: IBUPROFEN 400 MG TABLET (FP) PO PRN (14:02)
[2017-08-28] MEDS ORDERED: ACETAMINOPHEN 325 MG TABLET (FP) PO PRN (14:02)
[2017-08-28] MEDS ORDERED: MENTHOL/PHENOL 1 EACH UD MM PRN (14:02)
[2017-08-28] MEDS ORDERED: guaiFENesin/D-METHORPHAN HB 10 ML UNIT-DOSE CUPS PO PRN (14:02)
[2017-08-28] MEDS ORDERED: LOPERAMIDE HCL 2 MG CAPSULE PO PRN (14:02)
--- NOTE | 2017-08-28 14:02 | HP ---
[facility] Rehab Assess/Revision - Admission History Admitted to Rehab from: [facility] Date of Admission to Rehab: 08/28/2017 - Vital signs Vital Signs: NOTED; STABLE. - Findings Detox History & Physical reviewed: Yes Concur with findings: Yes Comments/Additional Findings: PATIENT'S MEDICAL / MEDICATION HISTORY REVIEWED PRIOR TO DISCHARGE FROM DETOX UNIT. PATIENT WAS DISCHARGED FROM DETOX UNIT TO BE TAKEN TO REHAB UNIT IN STABLE MEDICAL CONDITION. Inpatient Rehab Admission - Initial Determination Are CD services needed?: Yes Free of communicable disease: Yes Not in need of hospitalization: Yes - Rehab Admission Criteria Previous failed treatment: Yes Comorbidities: Yes Patient is meeting Inpatient Rehab admission criteria:: Yes
[2017-08-28] MEDS ORDERED: CYCLOBENZAPRINE HCL 5 MG TABLET PO PRN (14:03)
--- NOTE | 2017-08-28 19:15 | PN ---
[facility] Progress Note Note: Psychiatry Attending's ethanol operations manager note : Transferred to [address] Seroquel 100 mg po hs.Renewed.
[2017-08-28] MEDS ORDERED: THIAMINE HCL 100 MG TABLET (FP) PO SCH (22:00)
[2017-08-28] MEDS ORDERED: QUEtiapine FUMARATE 100 MG TABLET (FP) PO SCH (22:00)
[2017-08-28] MEDS ORDERED: MELATONIN 5 MG TABLETS PO PRN (22:00)
[2017-08-29] MEDS ORDERED: hydrOXYzine PAMOATE 25 MG CAPSULE (FP) PO ONE (00:49)
[2017-08-29 01:56] VITALS: BP 110/70; PULSE 68; TEMP 97.6
--- NOTE | 2017-08-29 02:36 | PN ---
[facility] Progress Note Note: I was called by Ms. Maldonado Weiss RN to evaluate patient who wants to leave against medical advice. Patient was pacing around the unit and was seen and evaluated. He states that that he cannot sleep and he does not feel that he is ready to follow through with rehabilitation. Patient had Flexaril 5mg oral, Melatonin 5mg oral and Seroquel 100mg oral respectively. Patient was subsequently given Vistaril 25mg tablet oral considering his BMI of 15.1kg. Patient states that he takes Vistaril 100mg at home and and he does not think he is ready to complete the rehab at this time. He reports that he is not happy with his medications because most of the medications that make him happy are prohibited in detox and rehab. Patient is medically stable, alert and able to make informed decisions at this time. No withdrawal symptoms noted or reported at this time. Vitals B/P 110/70, HR 68, RR 20, T 97.6. Patient denies pain or discomfort. He was encouraged to stay and leave tomorrow but he was adamant and wanted to leave as soon as possible. Risks and consequences of his action reinforced. Patient verbalized understanding of instructions, signed the AMA form and was escorted out by security.
--- NOTE | 2017-08-29 07:13 | PN ---
S Progress Note Note: Psychiatry Attending's note : Informed by nurse that the patient walked out of the unit. Mr Payan has decided to leave the program.No reason offered. Refer to staff's notes for details.
[2017-08-29] MEDS ORDERED: PRENATAL VITAMINS W/ FOLIC ACID TABLET (FP) PO SCH (10:00)
== END 2017-08-29 01:55 | disposition left against medical advice (07) | DRG 770 ==
LOC: YASAS 13:59 → Y5N 14:00
PROVIDERS: ADMIT Psychiatry & Neurology Psychiatry; ATTEND Psychiatry & Neurology Psychiatry
PROC: HZ42ZZZ Group Counseling for Substance Abuse Treatment, Cognitive-Behavioral (ICD-10-PCS; principal; 2017-08-28)
DX: F11.23 Opioid dependence with withdrawal (principal); F25.9 Schizoaffective disorder, unspecified; F33.3 Major depressive disorder, recurrent, severe with psychotic symptoms; G47.00 Insomnia, unspecified; K21.9 Gastro-esophageal reflux disease without esophagitis; B18.2 Chronic viral hepatitis C; Z91.5 Personal history of self-harm; Z87.891 Personal history of nicotine dependence